=== PATIENT | female | born 1985 | race Caucasian/White ===

== ENCOUNTER → 2018-07-31 | Outpatient (CLI) | payer BC ==
--- NOTE | 2018-07-31 17:14 | Diagnostic Imaging Report ---
INDICATION: survey. TECHNIQUE: Multiple real-time grayscale images were obtained over the gravid uterus. COMPARISON: None. FINDINGS: Billy intrauterine gestation is in cephalic position. The placenta is anterior. There is no abruption or previa. The cervix nondilated at 4.4 cm. No pathological finding at the anatomical survey was revealed, however, the four-chambered heart and intracranial contents were suboptimally visualized on a positional basis. heart rate 158 beats per minute. Biometrical measurements are as follows: Biparietal 4.60 cm, age 20 weeks 0 days. Head circumference 16.24 cm, age 19 weeks 1 days. Abdominal circumference 15.90 cm, age 21 weeks 1 days. Femur length 3.37 cm, age 20 weeks 4 days. Sonographic estimate age: 20 weeks 2 days. Sonographic estimated date of delivery: 12/16/2018. Estimated Weight: 365 gm (+/- 53 gm). LMP percentile: 79%. heart rate: 158 beats per minute. number: 1 of 1. IMPRESSION: 1. Billy viable IUP cephalic position measures 20 week 2 days. Sonographic date of confinement 12/16/2018 with no pathological finding demonstrated. 2. Anatomical survey limited with regards to the intracranial contents and the four chambered heart. Dictated by: Dictated on workstation # [id number]
== END ==
LOC: RAD 09:48
PROVIDERS: ATTEND Obstetrics & Gynecology
DX: Z36.89 Encounter for other specified antenatal screening (principal); Z3A.20 20 weeks gestation of pregnancy
CPT/HCPCS: 76805

== ENCOUNTER → 2018-09-19 | Outpatient (CLI) | payer BC ==
--- NOTE | 2018-09-19 16:46 | Diagnostic Imaging Report ---
INDICATION: survey TECHNIQUE: Multiple real-time grayscale images were obtained over the gravid uterus. COMPARISON: 07/31/2018. FINDINGS: The previous ultrasound of 07/31/2018 noted a single live fetus approximately 20 weeks 2 days gestation. There were no abnormalities identified although the intracranial contents and four-chamber heart view were less than optimal. This study was technically difficult due to patient's body habitus. The fetus is again visualized. The fetus is cephalic in presentation, heart motion was noted with a rate of 146 bpm recorded. The four-chamber heart view and intracranial contents are better visualized on this exam. There is no abnormality evident. The growth perimeters were not obtained for this study. The placenta is anterior and there is no previa. The cervix was visualized and measures 4.17 length. The amniotic fluid index is 12.1 and within normal limits. Biometrical measurements are as follows: Biparietal cm, age weeks days. Head circumference cm, age weeks days. Abdominal circumference cm, age weeks days. Femur length cm, age weeks days. Sonographic estimate age: weeks days. Sonographic estimated date of delivery: . Estimated Weight: gm (+/- gm). LMP percentile: % heart rate: beats per minute. number: of . IMPRESSION: 1. There is single live fetus approximately 27 weeks gestation. The EDC remains 12/16/2018. 2. There were no abnormalities identified. Specifically the four-chamber heart view and the intracranial contents appear to be within normal limits. 3. The growth parameters were not obtained for this study. Dictated by: Dictated on workstation # [id number]
== END ==
LOC: RAD 12:16
PROVIDERS: ATTEND Obstetrics & Gynecology
DX: Z36.89 Encounter for other specified antenatal screening (principal); Z3A.27 27 weeks gestation of pregnancy
CPT/HCPCS: 76816

== ENCOUNTER → 2018-10-14 | Outpatient (CLI) | payer BC ==
--- NOTE | 2018-10-14 13:03 | Diagnostic Imaging Report ---
INDICATION: Evaluate amniotic fluid volume and position. TECHNIQUE: Multiple real-time grayscale images were obtained over the gravid uterus. COMPARISON: 09/19/2018. FINDINGS: There is a single live fetus in a cephalic presentation. heart rate was recorded at 155 beats per minute. Placenta is anterior. Amniotic fluid index is 18 cm. kidneys, bladder, and stomach are visualized and unremarkable. There is a four-chamber heart. Biometrical measurements are as follows: Biparietal 8.13 cm, age 32 weeks 5 days. Head circumference 29.29 cm, age 32 weeks 3 days. Abdominal circumference 27.94 cm, age 32 weeks 0 days. Femur length 6.01 cm, age 31 weeks 2 days. Sonographic estimate age: 32 weeks 1 days. Sonographic estimated date of delivery: 12/08/2018. Estimated Weight: 1853 gm (+/- 271 gm). LMP percentile: 77%. heart rate: 155 beats per minute. number: 1 of 1. IMPRESSION: Single live IUP at 32 weeks gestational age showing normal interval growth when compared with prior exam. No complicating features are detected. Dictated by: Dictated on workstation # [id number]
== END ==
LOC: RAD 10:58
PROVIDERS: ATTEND Obstetrics & Gynecology
DX: O24.410 Gestational diabetes mellitus in pregnancy, diet controlled (principal); Z3A.32 32 weeks gestation of pregnancy
CPT/HCPCS: 76805

== ENCOUNTER → 2018-10-30 | Outpatient (CLI) | payer BC ==
--- NOTE | 2018-10-30 11:37 | Diagnostic Imaging Report ---
INDICATION: Evaluate growth. Patient has gestational diabetes. TECHNIQUE: Multiple real-time grayscale images were obtained over the gravid uterus. COMPARISON: 10/14/2018. FINDINGS: There is a single live fetus in a cephalic presentation. heart rate was recorded at 142 beats per minute. Placenta is anterior. Amniotic fluid index is 10.2 cm. No gross abnormalities are seen. Biophysical profile was also performed. Biophysical profile score is normal at 8 out of 8. Biometrical measurements are as follows: Biparietal 8.87 cm, age 36 weeks 0 days. Head circumference 31.83 cm, age 35 weeks 6 days. Abdominal circumference 31.46 cm, age 35 weeks 3 days. Femur length 6.61 cm, age 34 weeks 1 days. Sonographic estimate age: 35 weeks 3 days. Sonographic estimated date of delivery: 12/01/18. Estimated Weight: 2600 gm (+/- 380 gm). LMP percentile: 94%. heart rate: 142 beats per minute. number: 1 of 1. IMPRESSION: Single live IUP measuring 35-36 weeks gestational age. Biophysical profile score is 8 out of 8. Dictated by: Dictated on workstation # [id number]
== END ==
LOC: RAD 09:48
PROVIDERS: ATTEND Obstetrics & Gynecology
DX: O24.419 Gestational diabetes mellitus in pregnancy, unspecified control (principal); Z3A.35 35 weeks gestation of pregnancy
CPT/HCPCS: 76805; 76819

== ENCOUNTER → 2018-11-20 | Outpatient (CLI) | payer BC ==
--- NOTE | 2018-11-20 16:26 | Diagnostic Imaging Report ---
INDICATION: Gestational diabetes. TECHNIQUE: Multiple real-time grayscale images were obtained over the gravid uterus. COMPARISON: 10/30/2018. FINDINGS: A single live intrauterine fetus is seen measuring 37 weeks 2 days in size with normal interval growth compared to the prior study. The fetus is in cephalic presentation. Amniotic fluid index is 15.6 cm. Placenta is anterior and grade 2 with no evidence of previa. heart rate is 144 beats per minute. Full survey was not performed at this time. Biophysical profile was also performed. The fetus scored 2/2 in breathing, body movement, limb movement, and amniotic fluid index. Total score of 8/8 was given. Biometrical measurements are as follows: Biparietal 9.09 cm, age 37 weeks 0 days. Head circumference 33.05 cm, age 37 weeks 5 days. Abdominal circumference 34.05 cm, age 38 weeks 0 days. Femur length 7 cm, age 36 weeks 0 days. Sonographic estimate age: 37 weeks 2 days. Sonographic estimated date of delivery: 12/09/2018. Estimated Weight: 3174 gm (+/- 463 gm). LMP percentile: 84%. heart rate: 144 beats per minute. number: 1 of 1. IMPRESSION: Single live intrauterine fetus measuring 37 weeks 2 days in size with normal interval growth compared to the prior study. There was no detectable abnormality. biophysical profile score of 8/8 was noted. Dictated by: Dictated on workstation # [id number]
== END ==
LOC: RAD 11:56
PROVIDERS: ATTEND Obstetrics & Gynecology
DX: O24.415 Gestational diabetes mellitus in pregnancy, controlled by oral hypoglycemic drugs (principal); O36.63X0 Maternal care for excessive fetal growth, third trimester, not applicable or unspecified; Z3A.37 37 weeks gestation of pregnancy
CPT/HCPCS: 76805; 76819

== ENCOUNTER 2018-11-25 20:15 | Inpatient (IN) | payer BC | END 2018-11-29 16:30 | disposition home or self-care (01) | LOC: LDRP 20:15 ==